=== PATIENT | female | born 1955 | race Caucasian/White ===

== ENCOUNTER 2020-07-12 16:03 | Emergency (ER) | payer OTHER ==
[~2020-07-12] VITALS: Ht 149.9 cm; Wt 83.9 kg
[2020-07-12 16:21] VITALS: Ht 149.9 cm; Wt 83.9 kg
[2020-07-12 18:25] LABS: BASOPHIL % 0.4 % (0-2); PLATELET COUNT 162 x10^3mcL (130-400)
[2020-07-12 18:27] LABS: RED CELL DISTRIBUTION WIDTH 14.8 % (11.5-14.5)
[2020-07-12 18:41] LABS: CALCIUM 8.3 mg/dL (8.5-10.1); CARBON DIOXIDE 28.6 mmol/L (21-32); CHLORIDE SERUM 104 mmol/L (98-107); CREATININE SERUM 0.8 mg/dL (0.6-1.0); GFR1 > 60 mL/min; GLUCOSE SERUM 92 mg/dL (74-106); POTASSIUM SERUM 3.7 mmol/L (3.5-5.1); SODIUM SERUM 140 mmol/L (136-145)
[2020-07-12 18:46] LABS: ALKALINE PHOSPHATASE 87 U/L (46-116); ALT/SGPT 43 U/L (14-59); AST/SGOT 24 U/L (15-37); BILIRUBIN TOTAL 0.5 mg/dL (0.20-1.00)
[2020-07-12 18:47] LABS: ALBUMIN 2.9 g/dL (3.4-5.0)
[2020-07-12 20:42] LABS: UA SPECIFIC GRAVITY 1.025 (1.005-1.035); microscopic required? YES; urine erythrocyte NEGATIVE (NEGATIVE)
[2020-07-12 21:07] VITALS: BP 109/60
== END 2020-07-12 21:07 | disposition home or self-care (01) ==
LOC: ED 16:03
PROVIDERS: Emergency Medicine
DX: R51.9 Headache, unspecified (principal)
CPT/HCPCS: 83880; 84439; J0780